=== PATIENT | male | born 1975 | race Caucasian/White ===

== ENCOUNTER 2025-03-24 09:58 | Day surgery (SDC) | payer OTHER, SELFPAY ==
[2025-03-24] VITALS (8 sets, daily range): BP systolic 110–139; BP diastolic 63–96; PULSE 72–83; RESP 16–20; TEMP 36.8–36.9; O2SAT 96–97; BMI 37.6
[2025-03-24] MEDS: Lactated Ringers 1,000 ML 15 ML IV (10:39)
--- OUTSIDE RECORDS SUMMARY | 2025-03-24 10:40 | XMS RPT_ITS | CCD ---
Author Organization [facility] Care Team Providers Care Supervisor Molding Name Role Phone THONG EASTON Attending Unavailable WHITE HALL THONG Primary Care Unavailable TYRELL THONG Admitting Unavailable TYRELL THONG PAC Consulting Unavailable PROVIDER, UNKNOWN Consulting Unavailable Shan HERNANDEZ, Dr. Deluca Attending Provider Yosi Torrez Attending Vidal Kline Referring Unavailable Yosi Torrez Attending Yosi Harvey Referring Unavailable Tyrell Thong Primary Care Unavailable Allergies Allergy Classification Reported Allergen(s) Allergy Type Date of Onset Reaction(s) Facility Penicillins (antibiotic) (1 source) Penicillin Drug Allergy [facility] Repository (1 source) Penicillins Allergy to substance 10-29-2024 not sure [facility] (1 source) Penicillins Drug allergy (disorder) 03-15-2025 [facility] Repository Medications Current Medications Medication Drug Class(es) Dates Sig (Normalized) Sig (Original) atenolol 25 mg oral tablet (1 source) beta-Adrenergic Ari Start: 10-29-2024 take 1 tablet by mouth once daily Atenolol 25 mg tablet Active 25 mg PO daily October 29, 2024 12:00am atorvastatin 10 mg oral tablet (1 source) HMG-CoA Reductase Inhibitor Start: 10-29-2024 take 1 tablet by mouth once daily Atorvastatin (Lipitor) 10 mg tablet Active 10 mg PO daily October 29, 2024 12:00am Problems Problem Classification Problem Date Documented Da te Episodic/Chronic Disorders of lipid metabolism (1 source) Mixed hyperlipidemia; Translations: [Mixed hyperlipidemia] Onset: 10-16-2023 Chronic Other aftercare (1 source) Other retirement (current) drug therapy; Translations: [Other retirement (current) drug therapy] Onset: 10-16-2023 Episodic Other screening for suspected conditions (not mental disorders or infectious disease) (1 source) Encounter for screening for malignant neoplasm of prostate; Translations: [Encounter for screening for malignant neoplasm of prostate] Onset: 10-16-2023 Episodic Other skin disorders (1 source) Localized swelling, mass and lump, right upper limb; Translations: [Localized swelling, mass and lump, right upper limb] Onset: 01-06-2025 Episodic Results Test Name Value Interpretation Reference Range Facility Plastic Surgery Visit Report on 10-29-2024 Plastic Surgery Visit Report [facility] Surgery [address], [address] [place] [address] OFFICE VISIT Date of Service: 10/29/24 MR#: [id number] Acct: [id number] Name: MOLLY MURRAY Rep #: [id number] : 1975 Provider: Dr. Yosi Torrez MD Age/Sex: 48/M Location: [facility] Status: Signed Intake Vital Signs 3 10/29/24 09:18 Height 6 ft Weight: 288 lb BMI 39.0 BP 129/80 H Blood Pressure Location Rt brachial Position Sitting Respiration 18 Pulse 85 Pulse Source Monitor Temp 98.8 F Temp Source Temporal Pulse Oximetry (%) 94 Oxygen Delivery Method room air Intake Visit Reasons: LIPOMA R FOREARM Chief Complaint: Mass R forearm Is patient in pain?: No Allergies Penicillins Allergy (Unknown, Verified 10/29/24 09:16) not sure Medications 3 ???Medication ???Instructions ???Recorded ???Confirmed ???Type atenolol 25 mg tablet 25 mg PO QDAY 10/29/24 10/29/24 Hi story atorvastatin 10 mg tablet (Lipitor) 10 mg PO QDAY 10/29/24 10/29/24 History Nurse's Note: Pt states he has multiple lipomas all over but would like the ones on his right forearm looked at. [facility] Medical History High cholesterol Hypertension Social History Smoking Status: Former smoker HPI LIPOMA R FOREARM Details: The patient is a 48-year-old male presenting with multiple lipomas, first identified during his teenage years while participating in college sports. These subcutaneous tumors have recurred over the years, with the patient experiencing multiple lipomas primarily on the right forearm, but also in regions including the abdomen, groin, legs, and triceps. Past surgical removals were conducted following dermatological and surgical evaluations, yet no dietary or lifestyle changes have affected the growth of these lipomas. The patient currently identifies three significant lipomas on his right forearm, with sizes ranging from 1 x 1 cm to 4 x 4 cm. The mobility of these masses has remained consistent, though one large mass tends to occasionally produce nerve-related discomfort. Despite their persistence and gradual enlargement, the patient denies any recent drainage events or signs of infection. The overall growth in multiple sites over time and recent exercise-related injuries have led to greater awareness and concerns about size progression and the need for further surgical evaluation. Attestation: Documentation on this patient encounter was supported using ambient scribe technology/ voice AI technology. The patient consented to recording for the purpose of documenting the encounter. Provider reviewed content of the generated note prior to signature. ROS Details - Skin: Reports multiple subcutaneous masses, predominantly on the right forearm. - Neurological: Denies numbness or tingling. - Other: Denies drainage from masses. General General: Yes good health; No fatigue, fever(s) or weight loss HENMT HENMT: No rhinitis, sore throat/mouth sore, nasal congestion, contacts or glaucoma Endo Endocrine: No thyroid disease, polydipsia, heat intolerance, cold intolerance, hepatitis or excessive urine Skin Skin: No Bleeding, bruising, changing moles or suspicious lesion Musc Musculoskeletal: No joint pain, joint stiffness, muscle weakness, back pain, osteoarthritis or Muscle aches/ myalgia Neuro Neurological: No headache(s), No lightheadedness and No numbness Cardio Cardiovascular: No chest pain, pacemaker, fatigue or shortness of breat with exertion Psych Psychiatric: No depression, claustrophobia or anxiety Resp Respiratory: No spitting up, shortness of breath, sleep apnea, asthma, emphysema, TB, Cough or Smoker Gastro Gastrointestinal: No diarrhea, constipation, blood in stool, nausea, vomiting or abdominal bloating Terence Hematologic: No anemia, No bleeding and No abnormal bleeding Genitourinary: No urinary frequency, blood in urine or incontinence Exam Details Right Upper Extremity Inspection: There is a 4 x 4 cm radial mid forearm subcutaneous mobile mass, consistent with a lipoma. Just ulnar to it and proximal to it, there is another 1 x 1 cm subcutaneous mobile mass. Distal to the largest mass on the dorsal ulnar aspect of the mid forearm is another 2 x 1 cm mobile subcutaneous mass. All three are consistent with lipomas. Palpation: No axillary or epidural clear lymphadenopathy. Motor: Able to bend and extend all MP, PIP, and DIP joints. Left hand has normal hand exams, with no numbness or tingling. Sensory: Intact to light touch on the radial and ulnar borders. Vascular: Finger tips are warm and well perfused with greater than 2 second capillary refill. Coding Level o (more content not included)... Normal [facility] CMP with eGFRon 10-16-2023 AGE 47 years Normal [facility] Comment on above: Performed By: #### 2 [id number] #### [address] [address] Albumin [Mass/Vol] 3.7 g/dL Normal 3.4 - 5.0 [facility] Comment on above: Performed By: #### 2 96699 #### [facility],[address] [place] [address] Albumin/Globulin [Mass ratio] 1.3 {ratio} Normal 0.9 - 1.6 [facility] Comment on above: Performed By: #### 2 59248 #### [facility],[address] [place] [address] ALK PHOS 81 U/L Normal 46 - 116 [facility] Comment on above: Performed By: #### 2 80736 #### [facility],[address] [place] [address] ALT [Catalytic activity/Vol] 39 U/L Normal 16 - 63 [facility] Comment on above: Performed By: #### 2 90794 #### [address] [address] Anion gap [Moles/Vol] 16 mmol/L Normal 10 - 20 [facility] Comment on above: Performed By: #### 2 76568 #### [address] [address] AST [Catalytic activity/Vol] 18 U/L Normal 15 - 37 [facility] Comment on above: Performed By: #### 2 42863 #### [facility],[address] [place], [place] [id number] B/C RATIO 12 ratio Normal 0 - 30 [facility] Comment on above: Performed By: #### 2 39662 #### [facility],[address] [place], [place] [id number] Bilirubin [Mass/Vol] 0.6 mg/dL Normal 0.2 - 1.0 [facility] Comment on above: Performed By: #### 2 70925 #### [facility],[address] [place] [address] Calcium [Mass/Vol] 8.8 mg/dL Normal 8.5 - 10.1 [facility] Comment on above: Performed By: #### 2 18123 #### [facility],[address] [place], [place] [id number] Chloride [Moles/Vol] 106 mmol/L Normal 98 - 107 [facility] Comment on above: Performed By: #### 2 95650 #### [facility],[address] [place] [address] CMP with eGFR Normal [facility] Comment on above: Result Comment: COMP REHENSIVE METABOLIC PANEL Performed By: #### 2 61807 #### [facility],[address] [place] [address] CO2 [Moles/Vol] 22.6 mmol/L Normal 21.0 - 32.[address] [facility] Comment on above: Performed By: #### 2 89380 #### [facility],[address] [place] [address] Creatinine [Mass/Vol] 0.98 mg/dL Normal 0.70 - 1.30 [facility] Comment on above: Performed By: #### 2 95339 #### [facility],[address] [place] [address] GFR/1.73 sq M.predicted among non-blacks MDRD (S/P/Bld) [Vol rate/Area] mL/min/{1.73_m2} Normal 60 - 999 [facility] Comment on above: Performed By: #### 2 11540 #### [facility],[address] [place] [address] Result Comment: ACCO RDING TO THE NATIONAL KIDNEY DISEASE EDUCATION PROGRAM(NKDE), A NORMAL eGFR IS A VALUE GREATER THAN OR EQUAL TO 60 ML/MIN/1.73 SQ METERS. CHRONIC KIDNEY DISEASE: <60mL/MIN/1.73 SQ METERS KIDNEY FAILURE: <15mL/MIN/1.73 SQ METERS THIS TEST SHOULD ONLY BE USED FOR PATIENTS 18 YEARS OF AGE AND OLDER. Globulin (S) [Mass/Vol] 2.9 g/dL Normal 1.5 - 3.8 [facility] Comment on above: Performed By: #### 2 61658 #### [facility],[address] [place] [address] Glucose [Mass/Vol] 97 mg/dL Normal 74 - 106 [facility] Comment on above: Performed By: #### 2 84833 #### [facility],[address] [place] [address] Potassium [Moles/Vol] 4.5 mmol/L Normal 3.5 - 5.1 [facility] Comment on above: Performed By: #### 2 68634 #### [facility],[address] [place] [address] Protein [Mass/Vol] 6.6 g/dL Normal 6.4 - 8.2 [facility] Comment on above: Performed By: #### 2 18907 #### [facility],[address] [place] [address] Sodium [Moles/Vol] 140 mmol/L Normal 136 - 145 [facility] Comment on above: Performed By: #### 2 47309 #### [facility],[address] [place] [address]995 Urea nitrogen [Mass/Vol] 12 mg/dL Normal 7 - 18 [facility] Comment on above: Performed By: #### 2 28162 #### [facility],[address] [place] [address] LIPID PROFILEon 10-16-2023 Cholesterol [Mass/Vol] 237 mg/dL Normal 0 - 240 [facility] Comment on above: Performed By: #### 2 96503 #### [facility],[address] [place] [address] Cholesterol in HDL [Mass/Vol] 41 mg/dL Normal 40 - 60 [facility] Comment on above: Performed By: #### 2 96356 #### [facility],[address] [place] [address] Cholesterol in LDL [Mass/Vol] 155 mg/dL High 0 - 129 [facility] Comment on above: Performed By: #### 2 63194 #### [facility],[address] [place] [address] Cholesterol.total/C holesterol in HDL [Mass ratio] 5.8 {ratio} High 0.0 - 5.0 [facility] Comment on above: Performed By: #### 2 62781 #### [facility],[address] [place] [address] Lipid 1996 panel Normal [facility] Comment on above: Result Comment: LIPI D PROFILE Performed By: #### 2 81373 #### [facility],[address] [place] [address] Triglyceride [Mass/Vol] 205 mg/dL High 0 - 150 [facility] Comment on above: Performed By: #### 2 20873 #### [facility],[address] [place] [address] COMPREHENSIVE METABOLIC PANE Noe 11-21-2019 Albumin [Mass/Vol] 4.3 g/dL Normal 3.6-5.1 [facility] Comment on above: Performed By: #### 7 600, 65657 #### [facility] [address] [employer]: Yomi Calhoun MD Albumin/Globulin [Mass ratio] 2.0 (calc) Normal 1.0-2.5 [facility] Comment on above: Performed By: #### 7 600, 55322 #### [facility] [address] [employer]: Yomi Calhoun MD ALP [Catalytic activity/Vol] 82 U/L Normal 36-130 [facility] Comment on above: Performed By: #### 7 600, 50196 #### [facility] [address] [employer]: Yomi Calhoun MD ALT [Catalytic activity/Vol] 22 U/L Normal 9-46 [facility] Comment on above: Performed By: #### 7 600, 90245 #### [facility] [address] [employer]: Yomi Calhoun MD AST [Catalytic activity/Vol] 14 U/L Normal 10-40 [facility] Comment on above: Performed By: #### 7 600, 58710 #### [facility] [address] [employer]: Yomi Calhoun MD Bilirubin [Mass/Vol] 0.6 mg/dL Normal 0.2-1.2 [facility] Comment on above: Performed By: #### 7 600, 27044 #### [facility] [address] [employer]: Yomi Calhoun MD Calcium [Mass/Vol] 9.3 mg/dL Normal 8.6-10.3 [facility] Comment on above: Performed By: #### 7 600, 07141 #### [facility] [address] [employer]: Yomi Calhoun MD Chloride [Moles/Vol] 107 mmol/L Normal 98-110 [facility] Comment on above: Performed By: #### 7 600, 92114 #### [facility] [address] [place] , [address] [place] [address] [employer]: Yomi Calhoun MD CO2 [Moles/Vol] 23 mmol/L Normal 20-32 [facility] Comment on above: Performed By: #### 7 600, 64681 #### [facility]-[address], [address] [place] [address] [employer]: Yomi Calhoun MD Creatinine [Mass/Vol] 1.01 mg/dL Normal 0.60-1.35 [facility] Comment on above: Performed By: #### 7 600, 04082 #### [facility]-[address], [address] [place] [address] [employer]: Yomi Calhoun MD eGFR NON-AFR. THAI 92 mL/min/1.73m2 Normal > OR = 60 [facility] Comment on above: Performed By: #### 7 600, 80852 #### [facility]-[address], [address] [place] [address] [employer]: Yomi Calhoun MD GFR/1.73 sq M predicted among blacks MDRD (S/P/Bld) [Vol rate/Area] 107 mL/min/{1.73_m2} Normal > OR = 60 [facility] Comment on above: Performed By: #### 7 600, 24508 #### [facility]-[address], [address] [place] [address] [employer]: Yomi Calhoun MD Globulin (S) [Mass/Vol] 2.1 g/dL (calc) Normal 1.9-3.7 [facility] Comment on above: Performed By: #### 7 600, 98206 #### [facility]-[address], [address] [place] [address] [employer]: Yomi Calhoun MD Glucose [Mass/Vol] 93 mg/dL Normal 65-99 [facility] Comment on above: Result Comment: Fasting reference interval Performed By: #### 7 600, 33063 #### [facility]-[address], [address] [place] [address] [employer]: Yomi Calhoun MD Potassium [Moles/Vol] 4.3 mmol/L Normal 3.5-5.3 [facility] Comment on above: Performed By: #### 7 600, 04275 #### [facility]-[address], [address] [place] [address] [employer]: Yomi Calhoun MD Protein [Mass/Vol] 6.4 g/dL Normal 6.1-8.1 [facility] Comment on above: Performed By: #### 7 600, 56835 #### [facility]-[address], [address] [place] [address] [employer]: Yomi Calhoun MD Sodium [Moles/Vol] 138 mmol/L Normal 135-146 [facility] Comment on above: Performed By: #### 7 600, 11812 #### [facility]-[address], [address] [place] [address] [employer]: Yomi Calhoun MD Urea nitrogen [Mass/Vol] 13 mg/dL Normal 7-25 [facility] Comment on above: Performed By: #### 7 600, 96561 #### [facility]-[address], [address] [place] [address] [employer]: Yomi Calhoun MD Urea nitrogen/Creatinine [Mass ratio] NOT APPLICABLE Normal 6-22 [facility] Comment on above: Performed By: #### 7 600, 14328 #### [facility]-[address], [address] [place] [address] [employer]: Yomi Calhoun MD LIPID PANEL, STANDARDon 07-0 Cholesterol [Mass/Vol] 155 mg/dL Normal <200 [facility] Comment on above: Performed By: #### 7 600, 24917 #### [facility]-[address], [address] [place] [address] [employer]: Yomi Calhoun MD Cholesterol in HDL [Mass/Vol] 35 mg/dL Low > OR = 40 [facility] Comment on above: Performed By: #### 7 600, 48977 #### [facility] [address] [place] [address] [employer]: Yomi Calhoun MD Cholesterol in LDL [Mass/Vol] 100 mg/dL (calc) High [facility] Comment on above: Result Comment: Refe rence range: <100 Desirable range <100 mg/dL for primary prevention; <70 mg/dL for patients with CHD or diabetic patients with > or = 2 CHD risk factors. LDL-C is now calculated using the Herrera calculation, which is a validated novel method providing better accuracy than the Friedewald equation in the estimation of LDL-C. Rajinder CASTLE et al. SUMAN. 2013;310(19): 9451-2348 (http://education.Spacedeck.Sandvine/faq/WMZ028) Performed By: #### 7 600, 28002 #### [facility] [address] [employer]: Yomi Calhoun MD Cholesterol.total/C holesterol in HDL [Mass ratio] 4.4 (calc) Normal <5.0 [facility] Comment on above: Performed By: #### 7 600, 00801 #### [facility] [address] [employer]: Yomi Calhoun MD NON HDL CHOLESTEROL 120 mg/dL (calc) Normal <130 [facility] Comment on above: Result Comment: For patients with diabetes plus 1 major ASCVD risk factor, treating to a non-HDL-C goal of <100 mg/dL (LDL-C of <70 mg/dL) is considered a therapeutic option. Performed By: #### 7 600, 77272 #### [facility], [address] [place] [address] [employer]: Yomi Calhoun MD Triglyceride [Mass/Vol] 104 mg/dL Normal <150 [facility] Comment on above: Performed By: #### 7 600, 82118 #### [facility] [employer]: Yomi Calhoun MD Vital Signs Date Time Vital Sign Value Performing Clinician Constance moreau 10-29-2024 09:18-0400 Body height 182.[address] Yosi Torrez MD Work Phone: [facility] 10-29-2024 09:18-0400 Body mass index (BMI) [Ratio] 39 kg/m2 Dr. Yosi Torrez MD Work Phone: [facility] 10-29-2024 09:18-0400 Body temperature 98.8 [degF] Dr. Yosi Torrez MD Work Phone: [facility] 10-29-2024 09:18-0400 Body weight 130.[address] Yosi Torrez MD Work Phone: [facility] 10-29-2024 09:18-0400 Diastolic blood pressure 80 mm[Hg] Dr. Yosi Torrez MD Work Phone: [facility] 10-29-2024 09:18-0400 Heart rate 85 /min Dr. Yosi Torrez MD Work Phone: [facility] 10-29-2024 09:18-0400 Respiratory rate 18 /min Dr. Yosi Torrez MD Work Phone: [facility] 10-29-2024 09:18-0400 SaO2% (BldA) [Mass fraction] 94 % Dr. Yosi Torrez MD Work Phone: [facility] 10-29-2024 09:18-0400 Systolic blood pressure 129 mm[Hg] Dr. Yosi Torrez MD Work Phone: [facility] Encounters Encounter Date Encounter Type Care Provider Facility Start: 03-24-2025 ambulatory Yosi Torrez Facility:[facility] Start: 10-29-2024 End: 10-29-[address] Yosi Torrez MD -[facility] Work Phone: Start: 10-29-2024 End: 10-29-2024 ambulatory Yosi Torrez [facility] Work Phone: Start: 10-16-2023 End: 10-16-2023 ambulatory [facility] Procedures Date Procedure Procedure Detail Performing Clinician Start: 10-16-2023 PSA screening THONG EASTON Comment on above: Performed By: #### 2 16696 #### [facility],[address] [address] Payers Date Payer Category Payer Self-pay 2024 Unknown [id number] 1975 Unknown [id number] [id number] [id number] Unknown [id number] Unknown [id number] [id number] [id number] Unknown [id number] Social History Date Type Detail Facility Start: 10-29-2024 Tobacco smoking stat [facility] Ex-smoker (finding) [facility] Start: 1975 Sex Assigned At Male W [facility] Evaluation note Note Date & Type Note Facility Evaluation note No assessment information availa ble [facility] Work Phone: Reason for referral (narrative) Note Date & Type Note Facility Reason for referral (narrative) No reason for referral information available [facility] Work Phone: Summary Purpose Family History No Family History Records FoundNo Family History Records FoundNo Family History Records Found Advance Directives No Advanced Directives Records FoundNo Advanced Directives Records FoundNo Advanced Directives Records Found Chief Complaint and Reason for Visit Chief Complaint Admit Date LIPOMA R FOREARM October 29, 2024 8:44 am Additional Source Comments (unrecognized sect ion and content) No Status Records FoundNo Status Records FoundNo Status Records Found INFORMATION SOURCE (unrecogn ized section and content) DATE CREATED AUTHOR 12/11/2019 [facility] DATE CREATED AUTHOR AUTHOR'S ORGANIZ ATION 10/17/2023 [facility] DATE CREATED AUTHOR AUTHOR'S ORGANIZ ATION 03/23/2025 [facility] Care Teams (unrecognized sec tion and content) Team Status: Inactive Member Role Status Dates Dr. Yosi Torrez MD Attending Provider Active Start: October 29, 2024 End: October 29, 2024 Goals (unrecognized section and content) Goals may be documented in a n alternate section FOR RECORDS PERTAINING TO PATIENTS WHO ARE OR HAVE BEEN ENROLLED IN A CHEMICAL DEPENDENCY/SUBSTANCEABUSE PROGRAM, SOME INFORMATION MAY BE OMITTED. This clinical summary was aggregated from multiple sources. Caution should be exercised in using it in the provision of clinical care. This summary normalizes information from multiple sources, and as a consequence, information in this document may materially change the coding, format and clinical context of patient data. In addition, data may be omitted in some cases. CLINICAL DECISIONS SHOULD BE BASED ON THE PRIMARY CLINICAL RECORDS. [facility] [employer] [facility]. provides no warranty or guarantee of the accuracy or completeness of information in this document.
--- NOTE | 2025-03-24 10:56 | PCM.PRE.AN2 ---
ASA Classification* ASA Classification ASA Classification: 2 (BMI > 35 ) Assessment & Plan Anesthesia* Anesthesia Assessment Anesthesia Assessment: Discussed sedation and/or anesthesia options, risks, benefits, and alternatives with patient/parents/legal guardian/POA. Questions invited. The patient/parents/legal guardian/POA seems to understand and agrees to proceed with anesthesia plan. Reviewed the physical assessment, medical history, allergy history and patient home medications list prior to surgery/procedure/anesthetic and documented any changes. Performed airway and anesthesia risk assessments. Anesthesia Type Anesthesia Type: MAC History Source History Obtained from:: Patient and Chart Anesthesia Focused Assessment* Temperature: 98.4 F Pulse Rate: 83 Blood Pressure: 139/96 Respiratory Rate: 16 Pulse Ox: 97 Oxygen Delivery Method: Room Air Airway Assessment Mouth opens: >3 cm Mallampati Score: III Teeth Condition: Intact Neck Range of motion (ROM): Full ROM Labs Anesthesia Preop lab: CBC CHEMISTRY COAG Pre-Assessment Diagnosis/Proposed Procedure Planned Operative Procedure(s): (R) Excision three right forearm lipomas Anesthesia History Anesthesia History - medical lab scientist: Anesthesia History - medical lab scientist Hx Hospitalization No 03/15/25 15:21 Any Problems With Anesthesia No 03/15/25 15:21 Cholinesterase deficiency No 03/15/25 15:21 You/Your Family Experience No 03/15/25 15:21 fever (hyperthermia) with Relationship Recent Exposure to Contagious No 03/24/25 10:33 Disease Does patient have nerve No 03/15/25 15:21 stimulator Patient instructed to have device shut off --Does patient have Pacemaker No 03/24/25 10:33 or ICD? When Was Last Pacemaker Check QUESTION #4 FULL TEXT: You/Your Family Experience fever (hyperthermia) with Anesthesia Last Oral Intake Last Oral intake: Last Oral Intake NPO since 22:00 03/24/25 10:33 Meds taken in AM with sips of No 03/24/25 10:33 water? Meds patient instructed to take am of surgery PONV PONV - medical lab scientist: PONV - medical lab scientist Female No 03/15/25 15:21 HX of Motion Sickness No 03/15/25 15:21 HX of N/V After Surgery Yes 03/15/25 15:21 Non-Smoker No 03/15/25 15:21 Duration of Surgery greater No 03/15/25 15:21 than 60 minutes Number of Risk Factors 1 03/15/25 15:21 PONV Score Low Risk 03/15/25 15:21 Height & Weight Height & Weight: Anesthesia: Height & Weight Height 6 ft 03/24/25 10:33 Weight: 126 kg 03/24/25 10:33 Body Mass Index (BMI) 37.6 03/24/25 10:33 Respiratory Assessment Respiratory Assessment - medical lab scientist: Respiratory Tract Infection Hx - medical lab scientist Hx Respiratory Tract Infection No 03/15/25 15:21 STOP Sleep Apnea STOP Sleep Apnea - medical lab scientist: STOP Sleep Apnea - medical lab scientist Hx Hypertension Yes: PT TOOK HIMESELF OFF OF 03/15/25 15:21 HIS BP MED Hx Sleep Apnea No 03/15/25 15:21 CPAP BIPAP Do you snore loudly (louder No 03/15/25 15:21 than talking or can be heard Do you often feel tired/ No 03/15/25 15:21 fatigued/ sleepy during daytime? Has anyone observed you stop No 03/15/25 15:21 breathing during sleep? STOP Results Negative 03/15/25 15:21 QUESTION #5 FULL TEXT : Do you snore loudly (louder than talking or can be heard through closed doors)? Tobacco Use History Tobacco Use History - medical lab scientist: Tobacco Use History - medical lab scientist Tobacco Use Smoking Status Never smoker 03/15/25 15:21 Hx Tobacco Use No 03/15/25 15:21 Years Smoking Packs Smoked per Day Smoking Cessation Date was within the last 15 years Hx Smoking Cessation Date Hx Smoking Cessation Counseling Hematologic Medial History Hematologic Hx - medical lab scientist: Hematologic Medical Hx - manager of organizational development Hx of Blood Transfusion No 03/15/25 15:21 Hx of Transfusion in last 3 No 03/15/25 15:21 Months Date of Last Transfusion (if within last 3 months) Ever experience any problems No 03/15/25 15:21 with transfusion(s)? Specify any problems Hx of Preganancy in last 3 N/A 03/15/25 15:21 Months Nurse Filling Out Transfusion VCHRISTIN 03/15/25 15:21 & Questions: Date: 03/15/25 03/15/25 15:21 Time: 15:22 03/15/25 15:21 Patient unable to answer at this time (ie. confused, unrespo /Reproduction History /Reproductive History - medical lab scientist: /Reproductive Hx- medical lab scientist Hx Now No 03/15/25 15:21 Gestational Age (in weeks): EDC: Hx Hx Para Hx Section SAB No 03/15/25 15:21 Active Medications Active Medications: Current Medications Generic Name Dose Route Start Last Admin Trade Name Freq PRN Reason Stop Dose Admin Clindamycin Phosphate 900 mg in 50 mls @ 75 mls/hr 03/24/25 11:30 Cleocin IV 03/24/25 12:09 INTRAOP ONE Lactated Ringer's 1,000 mls @ 15 mls/hr 03/24/25 10:15 03/24/25 10:39 IV 15 mls/hr .Q48H AZAM Administration PFSH Medical History (Updated 03/15/25 @ 15:20 by Lois Silveira) Wears glasses Kidney stones Hx of lipoma High cholesterol Hypertension Home Medications Medication Instructions Recorded Last Taken Type NK 03/15/25 Unknown History Allergy/AdvReac Type Severity Reaction Status Date / Time Penicillins Allergy Unknown not sure Verified 03/24/25 10:31 Surgical History (Updated 03/15/25 @ 15:20 by Lois Silveira) Hx of colonoscopy Social History Smoking Status: Never smoker Review of Systems (Anesthesia) ROS Narrative System reviewed and no additional complaints, except as documented. Physical Exam Const alert and oriented x3 Nutritional Appearance: obese Resp normal respiratory effort, normal air movement and clear to auscultation bilaterally Cardio regular rate, regular rhythm, no murmurs and diaphoretic
--- NOTE | 2025-03-24 11:30 | LIP_PTH ---
PATIENT: MOLLY MURRAY [place]: [facility] [place] U#:[id number] AGE/SX: 49/M ROOM: RE03/24/[address]: Dr. Yosi Torrez MD : 1975 BED: DIS: 03/24/2025 SPEC #: [id number] RECD: 03/24/25 13:42 STATUS: PENNIE REKatherine #: [id number] JALYN: 03/24/25 11:[address]: Yosi Torrez DEPT: SURGICAL PATHOLOGY RECD BY: Ebenezer Blanca ENTERED: 03/24/25 14:25 SP TYPE: LIPOMA OTHR DR: Kathy Santillan PA-C Tissues: A - Soft tissues, NOS B - Soft tissues, NOS C - Soft tissues, NOS Procedures: Surgery Specimen Level III HEADER OPERATION: Excision three right forearm lipomas PRE-OP DIAGNOSIS: Subcutaneous mass of right forearm TISSUE SUBMITTED: A- Lipoma distal forearm right, B- Lipoma middle forearm right, C- Lipoma proximal forearm right MICROSCOPIC DIAGNOSIS A. Right distal forearm, "lipoma", excision: - Angiolipoma. B. Right middle forearm, "lipoma", excision: - Angiolipoma. C. Right proximal forearm, "lipoma", excision: - Angiolipoma. MICROSCOPIC DESCRIPTION Slides are reviewed. GROSS DESCRIPTION Received in 3 formalin containers labeled with the patient's name and date of . Designated as: A. "Distal forearm lipoma right" is a 1.9 x 1.8 x 0.7 cm farr-yellow portion of soft tissue with focally congested, homogenous cut surfaces. Entirely submitted in 1 cassette. B. "Right middle forearm lipoma" is a 5.0 x 4.4 x 1.3 cm farr-yellow, focally congested portion of soft tissue. Reveals yellow lobulated, homogenous cut surfaces. Brim Shaper sections are submitted 4 cassettes. C. "Right proximal forearm lipoma" is a 2.0 x 1.3 x 0.5 cm farr-yellow portion of soft tissue with focally congested, homogenous cut surfaces. Entirely submitted in 1 cassette. UT 03/24/2025 CPT:88186w8
--- NOTE | 2025-03-24 11:51 | PCM.HP.STD ---
HPI - General HPI Narrative MOLLY MURRAY, is a 49 M who presents today for right forearm multiple lipoma excision. He denies changs to his medical health since his last visit. Denies fever, chills, URI, dental infection, rashes. October HPI: The patient is a 49-year-old male presenting with multiple lipomas, first identified during his teenage years while participating in college sports. These subcutaneous tumors have recurred over the years, with the patient experiencing multiple lipomas primarily on the right forearm, but also in regions including the abdomen, groin, legs, and triceps. Past surgical removals were conducted following dermatological and surgical evaluations, yet no dietary or lifestyle changes have affected the growth of these lipomas. The patient currently identifies three significant lipomas on his right forearm, with sizes ranging from 1 x 1 cm to 4 x 4 cm. The mobility of these masses has remained consistent, though one large mass tends to occasionally produce nerve-related discomfort. Despite their persistence and gradual enlargement, the patient denies any recent drainage events or signs of infection. The overall growth in multiple sites over time and recent exercise-related injuries have led to greater awareness and concerns about size progression and the need for further surgical evaluation. [facility] Medical History (Updated 03/15/25 @ 15:20 by Lois Silveira) Wears glasses Kidney stones Hx of lipoma High cholesterol Hypertension Home Medications Medication Instructions Recorded Last Taken Type oxycodone 5 mg tablet 5 mg PO BID PRN pain 5 days #10 03/24/25 Unknown Rx tabs Allergy/AdvReac Type Severity Reaction Status Date / Time Penicillins Allergy Unknown not sure Verified 03/24/25 10:31 Surgical History (Updated 03/15/25 @ 15:20 by Lois Silveira) Hx of colonoscopy Social History Smoking Status: Never smoker ROS ROS Narrative General: Denies fever, chills HEENT: Denies headaches, vision changes, sore throat Cardio: Denies chest pain, leg edema Pulmonary: Denies shortness of pain, cough, wheezing GI: Denies nausea, vomiting, diarrhea Vital Signs Vital Signs Vital Signs: 03/24/25 10:33 03/24/25 10:33 03/24/25 10:58 Temperature 98.4 F 98.4 F Temperature Source Temporal Pulse Rate 83 83 Respiratory Rate 16 16 Respiratory Pattern Normal Blood Pressure 139/96 H 139/96 H Blood Pressure Mean 110 Blood Pressure Source Monitor Blood Pressure Position Sitting Blood Pressure Location Left Arm Pulse Ox 97 97 Oxygen Delivery Method Room Air Room Air Weight Weight: 277 lb 12.519 oz Body Mass Index (BMI) 37.6 Physical Exam Narrative Afebrile/VSS. Right Upper Extremity Inspection: There is a 4 x 4 cm radial mid forearm subcutaneous mobile mass, consistent with a lipoma. Just ulnar to it and proximal to it, there is another 1 x 1 cm subcutaneous mobile mass. Distal to the largest mass on the dorsal ulnar aspect of the mid forearm is another 2 x 1 cm mobile subcutaneous mass. All three are consistent with lipomas. Palpation: No axillary or epidural clear lymphadenopathy. Motor: Able to bend and extend all MP, PIP, and DIP joints. Left hand has normal hand exams, with no numbness or tingling. Sensory: Intact to light touch on the radial and ulnar borders. Vascular: Finger tips are warm and well perfused with greater than 2 second capillary refill. Assessment & Plan Assessment/Plan (1) Subcutaneous mass of right forearm: PLAN: Lipoma excisions today of right forearm Clindamycin for preop antibiotics with plans for discharge home same day.
[2025-03-24] MEDS: Lactated Ringers 500 ML IV (12:29)
[2025-03-24] MEDS: fentaNYL 100 MCG/2 ML Ampul 50 MCG IV (12:40)
[2025-03-24] MEDS: Midazolam 2 MG/2 ML Syringe IV (12:40)
[2025-03-24] MEDS: Lidocaine 1% (5 ml sdv) 5 ML Vial IV (12:40)
--- NOTE | 2025-03-24 12:42 | OP.PCM_ITS ---
Operative Report (Standard) Operative Information Date of Procedure: 03/24/25 Pre-Operative Diagnosis: Right forearm lipomas x 3 Post-Operative Diagnosis: Same Surgery/Procedure Performed: 1) excision right distal forearm lipoma, 1.5 x 1.5 cm 2) excision right middle forearm lipoma, 4.5 x 4 cm 3) excision proximal right forearm lipoma, 2 x 1 cm machine operator hop picker: Yes Esthetician And Manager Medical [employer]: Christina Blas Tasks completed by surgical dental assistant: Opening & closing and Retracting Type of Anesthesia: General/Supplemental (20 cc of 50-50 mixture of 1% lidocaine with 1-200,000 epinephrine and quarter percent Marcaine with 1-200,000 epinephrine) RN Documented Start/Stop Times: Operation Date: 03/24/25 11:30 Case Time Into Pre-Op 03/24/25 10:09 Out of Pre-Op 03/24/25 12:24 Anesthesia Start 03/24/25 12:28 Into Room 03/24/25 12:28 Procedure Start 03/24/25 12:59 Procedure End 03/24/25 13:24 Anesthesia End 03/24/25 13:29 Out of Room 03/24/25 13:29 Into Recovery 03/24/25 13:32 Out of Recovery 03/24/25 13:46 Into Phase II Recovery 03/24/25 13:47 Procedure Start Time: 12:59 Procedure Stop Time: 13:24 Select all DRAINS/GRAFTS/IMPLANTS that apply: None Estimated Blood Loss: 10 cc Specimen collected: Yes Description of specimen(s) removed: 3 separate lipomas, distal forearm, middle forearm, and proximal forearm Description of surgery: Indications: Patient is a delightful 49-year-old male with forearm masses on the right side consistent with lipomas. They are mobile. He presents today for excision. I talked about the risks, benefits, and alternatives to the procedure and he elected to proceed. Procedure details: Patient was correct identified in preoperative holding and I marked him. The lipomas were identified (palpated and then marked) with the patient in agreement with the site reeves. He was taken back to the operating room where he was given anesthesia and prepped and draped in sterile fashion. A timeout was performed. A 10 blade scalpel was used to make longitudinally oriented incisions over the masses in 3 separate locations. Dissection was carefully taken through the subcutaneous tissue around the masses with tenotomy scissors under loupe magnification so as to preserve and protect any cutaneous nerves. They were sent separately for 3 separate specimens labeled distal forearm lipoma, mid forearm lipoma, and proximal forearm lipoma, measuring 1.5 x 1.5 cm, 4.5 x 4 cm, and 2 x 1 cm, respectively. Hemostasis was obtained with Bovie electrocautery. The wounds were irrigated copious maria ines normal saline and closed in layers using 3-0 Monocryl deep dermal sutures followed by 3-0 Monocryl running subcuticular sutures and Prineo tape. Patient tolerated the procedure well. Postoperative plan: Patient will follow-up with me on Saturday for wound check and then 1 week after that as he is going out of town for business trip. Surgical Findings: All 3 masses consistent with lipomas in the subcutaneous tissues Complications Complications: No
[2025-03-24] MEDS: Lidocaine 1% /Epi 1:100 (20ml) 20 ML Vial (13:10)
[2025-03-24] MEDS: Bupiv/Epi 0.25% 30 ML Vial (13:10)
--- NOTE | 2025-03-24 13:36 | PCM.POST.ANE ---
Anesthesia: Postop Eval I Current Vital Signs Temperature: 98.4 F Pulse Rate: 80 Blood Pressure: 117/69 Respiratory Rate: 20 Pulse Ox: 96 Oxygen Delivery Method: Room Air Assessment Airway patent: Yes Spontaneous unlabored respirations: Yes Mental status: Awake and Calm nausea: No Vomiting: No Anesthesia Complication: No Fluid Hydration Crystalloid volume administer (ml): 700 Total IV fluid infused: 700 Progress Note Anesthesia document: Postop Eval 1 completed: Yes
--- NOTE | 2025-03-24 14:24 | POSTOPAN2_ITS ---
Anesthesia Postop Eval I Sum Postop Eval Completion status Anesthesia document: Postop Eval 1 completed: Yes Anesthesia Postop Eval I Summary Anesthesia Postop Eval I Summary: Anesthesia Postop Eval I: Assessment Summary Airway patent Yes 03/24/25 13:36 [email or web address] Spontaneous unlabored Yes 03/24/25 13:36 [email or web address] respirations Mental status Awake,Calm 03/24/25 13:36 DIALS [email or web address] nausea No 03/24/25 13:36 DIALS [email or web address] Vomiting No 03/24/25 13:36 DIALS [email or web address] Anesthesia Postop Eval I: Fluid Summary Crystalloid volume administer 700 03/24/25 13:36 DIALS [email or web address] (ml) Colloids volume administered ( ml) Blood Product volume administered (ml) Total IV fluid infused 700 03/24/25 13:36 DIALS [email or web address] Anesthesia Postop Eval I: Summary Notes Anesthesia Complication No 03/24/25 13:36 DIALS [email or web address] Anesthesia Complication Comment: Post-operative progress note Anesthesia: Postop Eval II Evaluation Mental status: Awake Pain Level: 0 nausea: No Vomiting: No Complications Anesthesia Complication: No
--- NOTE | 2025-03-24 14:24 | PCM.POSTANE2 ---
Anesthesia Postop Eval I Sum Postop Eval Completion status Anesthesia document: Postop Eval 1 completed: Yes Anesthesia Postop Eval I Summary Anesthesia Postop Eval I Summary: Anesthesia Postop Eval I: Assessment Summary Airway patent Yes 03/24/25 13:36 [email or web address] Spontaneous unlabored Yes 03/24/25 13:36 STATISTICAL [email or web address] respirations Mental status Awake,Calm 03/24/25 13:36 STATISTICAL [email or web address] nausea No 03/24/25 13:36 STATISTICAL [email or web address] Vomiting No 03/24/25 13:36 STATISTICAL [email or web address] Anesthesia Postop Eval I: Fluid Summary Crystalloid volume administer 700 03/24/25 13:36 [email or web address] (ml) Colloids volume administered ( ml) Blood Product volume administered (ml) Total IV fluid infused 700 03/24/25 13:36 [email or web address] Anesthesia Postop Eval I: Summary Notes Anesthesia Complication No 03/24/25 13:36 STATISTICAL [email or web address] Anesthesia Complication Comment: Post-operative progress note Anesthesia: Postop Eval II Evaluation Mental status: Awake Pain Level: 0 nausea: No Vomiting: No Complications Anesthesia Complication: No
== END 2025-03-24 14:23 | disposition home or self-care (01) ==
LOC: SDC 10:03 → AC 10:04
PROVIDERS: PCP Family Medicine; Referring Provider Surgery Plastic and Reconstructive Surgery; Visit Provider Surgery Plastic and Reconstructive Surgery
DX: D17.21 Benign lipomatous neoplasm of skin and subcutaneous tissue of right arm (principal); E78.00 Pure hypercholesterolemia, unspecified; I10 Essential (primary) hypertension
CPT/HCPCS: 24071; 24075 ×2; 00400; 88304; A4216; J2405